=== PATIENT | male | born 1975 | race Caucasian/White ===

== ENCOUNTER 2019-05-29 09:23 | Emergency (ER) | payer OTHER ==
[2019-05-29 09:30] VITALS: BP 129/89; PULSE 86; TEMP 97.7; BMI 25.0
[2019-05-29] MEDS ORDERED: KETOROLAC TROMETHAMINE 60 MG/2 ML VIAL IM ONE (09:41)
--- NOTE | 2019-05-29 09:44 | PDOC ---
History of Present Illness - General Chief Complaint: Back Pain Stated Complaint: back pain Time Seen by Provider: 05/29/19 09:28 History Source: Patient - History of Present Illness Occurred: reports: yesterday Severity: reports: moderate Pain Location: reports: back Past History - Past Medical History Allergies/Adverse Reactions: Allergies Allergy/AdvReac Type Severity Reaction Status Date / Time No Known Allergies Allergy Verified 12/22/15 10:53 Home Medications: Ambulatory Orders Ibuprofen [Motrin -] 800 mg PO Q6H #20 tablet 12/22/15 Cyclobenzaprine HCl [Flexeril -] 10 mg PO TID #9 tablet 05/29/19 Cyclobenzaprine HCl [Flexeril 10 mg] 10 mg PO HS #9 tablet 05/29/19 Ibuprofen [Motrin -] 800 mg PO Q6H #30 tablet 05/29/19 Ibuprofen [Motrin -] 800 mg PO Q6H #30 tablet 05/29/19 COPD: No - Immunization History Immunization Up to Date: Yes - Psycho Social/Smoking Cessation Hx Smoking History: Never smoked Have you smoked in the past 12 months: No Information on smoking cessation initiated: No Hx Alcohol Use: No Drug/Substance Use Hx: No Substance Use Type: None Review of Systems - Review of Systems Constitutional: No: Chills, Fever ABD/GI: No: Nausea, Vomiting, Abdominal cramping : No: Dysuria, Flank Pain, Hematuria Neurological: No: Numbness, Tingling, Weakness *Physical Exam - Vital Signs Last Vital Signs Temp Pulse Resp BP Pulse Ox 97.7 F 86 19 129/89 99 05/29/19 09:28 05/29/19 09:28 05/29/19 09:28 05/29/19 09:28 05/29/19 09:28 - Physical Exam General Appearance: Yes: Appropriately Dressed, Mild Distress HEENT: positive: Normal Voice Neck: positive: Supple Respiratory/Chest: negative: Respiratory Distress Gastrointestinal/Abdominal: positive: Soft. negative: Tender Musculoskeletal: positive: Other (c/o mid lower bakc pain w/ forward bending). negative: CVA Tenderness, Vertebral Tenderness Integumentary: positive: Dry, Warm Neurologic: positive: Fully Oriented, Alert, Normal Mood/Affect, Motor Strength 5/5 Medical Decision Making - Medical Decision Making 05/29/19 09:42 43-year-old male endorses history of chronic intermittent mid lower back pain, here with usual pain since yesterday. No radiation of pain. No acute sensory changes incontinence or lower extremity weakness. No recent trauma or other obvious inciting factors. No acute symptoms, nausea, vomiting, fever or chills. Has not taken anything for pain. see exam Lower back pain Recurrent No red flags at this time Dc w/ pain control PMD f/u as needed Discharge - Discharge Information Problems reviewed: Yes Clinical Impression/Diagnosis: Back pain Qualifiers: Back pain location: low back pain Chronicity: acute Back pain laterality: midline Sciatica presence: without sciatica Qualified Code(s): M54.5 - Low back pain Condition: Good Disposition: HOME - Additional Discharge Information Prescriptions: Cyclobenzaprine HCl [Flexeril 10 mg] 10 mg PO HS #9 tablet Cyclobenzaprine HCl [Flexeril -] 10 mg PO TID #9 tablet Ibuprofen [Motrin -] 800 mg PO Q6H #30 tablet Ibuprofen [Motrin -] 800 mg PO Q6H #30 tablet - Follow up/Referral - Patient Discharge Instructions Patient Printed Discharge Instructions: DI for Low Back Pain Additional Instructions: Take medication as directed for pain and if pain persists please follow-up with your PMD - Post Discharge Activity
[2019-05-29] MEDS ORDERED: KETOROLAC TROMETHAMINE 60 MG/2 ML VIAL ONE (09:48)
== END 2019-05-29 10:00 | disposition home or self-care (01) ==
LOC: JERFT 09:23
PROC: 3E0233Z Introduction of Anti-inflammatory into Muscle, Percutaneous Approach (ICD-10-PCS; principal; 2019-05-29)
DX: M54.5 Low back pain (principal)
CPT/HCPCS: 96372; 99282-25

== ENCOUNTER 2019-06-26 12:26 | Emergency (ER) | payer OTHER ==
[2019-06-26 12:39] VITALS: BP 126/85; PULSE 105; TEMP 97.8; BMI 22.9
--- NOTE | 2019-06-26 13:19 | PDOC ---
History of Present Illness - General Chief Complaint: Cold Symptoms Stated Complaint: COLD SYMPTOMS Time Seen by Provider: 06/26/19 12:41 History Source: Patient Exam Limitations: Clinical Condition - History of Present Illness Initial Comments: 06/26/19 13:14 Patient with no significant past medical history present with spouse with complaint of 3-day history of dry cough, nasal congestion, body aches, fever, chills, throat discomfort and intermittent headaches. Patient reported last fever yesterday of 101 F with no fever today. Patient did not take anything for symptoms. Denies chest pain, shortness of breath, palpitation, nausea, vomiting, diarrhea or constipation. Denies any other symptoms. And spouse present with patient with same symptoms Is this a multiple visit Asthma Patient?: No Timing/Duration: reports: other (3 days) Severity: reports: mild Associated Symptoms: reports: cough, fever/chills, headache, muscle aches, nasal congestion, nasal drainage, sore throat. denies: chest pain/soreness, dizziness, lightheadedness, shortness of breath, wheezing Past History - Past Medical History Allergies/Adverse Reactions: Allergies Allergy/AdvReac Type Severity Reaction Status Date / Time No Known Allergies Allergy Verified 06/26/19 12:53 Home Medications: Ambulatory Orders Ibuprofen [Motrin -] 800 mg PO Q6H #20 tablet 12/22/15 Cyclobenzaprine HCl [Flexeril -] 10 mg PO TID #9 tablet 05/29/19 Cyclobenzaprine HCl [Flexeril 10 mg] 10 mg PO HS #9 tablet 05/29/19 Ibuprofen [Motrin -] 800 mg PO Q6H #30 tablet 05/29/19 Ibuprofen [Motrin -] 800 mg PO Q6H #30 tablet 05/29/19 Benzonatate [Tessalon Pearls -] 100 mg PO Q8H PRN #20 capsule 06/26/19 Ipratropium Saline 2 spray NS BID PRN 5 Days #1 spray 06/26/19 Montelukast Na [Singulair -] 10 mg PO DAILY #7 tablet 06/26/19 COPD: No - Immunization History Immunization Up to Date: Yes - Psycho Social/Smoking Cessation Hx Smoking History: Never smoked Have you smoked in the past 12 months: No Hx Alcohol Use: No Drug/Substance Use Hx: No Substance Use Type: None Review of Systems - Review of Systems Able to Perform ROS?: Yes Is the patient limited [place] proficient: No Constitutional: Yes: Chills, Fever, Malaise HEENTM: Yes: Symptoms Reported, See HPI, Nose Congestion, Throat Pain. No: Eye Pain, Blurred Vision, Tearing, Recent change in vision, Double Vision, Cataracts , Ear Pain, Ocular Prothesis, Ear Discharge, Nose Pain, Tinnitus, Nose Bleeding , Hearing Loss, Throat Swelling, Mouth Pain, Dental Problems, Difficulty Swallowing, Mouth Swelling, Other Respiratory: Yes: Symptoms reported, See HPI, Cough. No: Orthopnea, Shortness of Breath, SOB with Exertion, SOB at Rest, Stridor, Wheezing, Productive cough, Hemoptysis, Other Cardiac (ROS): No: Symptoms Reported, See HPI, Chest Pain, Edema, Irregular Heart Rate, Lightheadedness, Palpitations, Syncope, Chest Tightness, Other ABD/GI: No: Symptoms Reported, Nausea, Vomiting Musculoskeletal: No: Symptoms Reported Integumentary: No: Symptoms Reported, Rash Neurological: Yes: Symptoms reported, See HPI, Headache (intermittent). No: Numbness, Paresthesia, Tingling, Dizziness All Other Systems: Reviewed and Negative *Physical Exam - Vital Signs Last Vital Signs Temp Pulse Resp BP Pulse Ox 97.8 F 105 H 18 126/85 98 06/26/19 12:33 06/26/19 12:33 06/26/19 12:33 06/26/19 12:33 06/26/19 12:33 - Physical Exam 06/26/19 13:17 GENERAL: Well developed, well nourished. Awake and alert. No acute distress. HEENT: Normocephalic, atraumatic. PERRLA, EOMI. No conjunctival pallor. Sclera are non-icteric. Moist mucous membranes. Oropharynx is clear. NECK: Supple. Full ROM. CARDIOVASCULAR: Regular rate and rhythm. No murmurs, rubs, or gallops. Distal pulses are 2+ and symmetric. PULMONARY: No evidence of respiratory distress. Lungs clear to auscultation bilaterally. No wheezing, rales or rhonchi. ABDOMINAL: Soft. Non-tender. Non-distended. No rebound or guarding. No organomegaly. Normoactive bowel sounds. MUSCULOSKELETAL Normal range of motion at all joints. SKIN: Warm and dry. Normal capillary refill. No rashes. No jaundice. NEUROLOGICAL: Alert, awake, appropriate. Gait is normal without ataxia. PSYCHIATRIC: Cooperative. Good eye contact. Appropriate mood General Appearance: Yes: Nourished, Appropriately Dressed. No: Apparent Distress Medical Decision Making - Medical Decision Making 06/26/19 13:16 Patient with no significant past medical history present with spouse with complaint of 3-day history of dry cough, nasal congestion, body aches, fever, chills, throat discomfort and intermittent headaches. Patient reported last fever yesterday of 101 F with no fever today. Patient did not take anything for symptoms. Denies chest pain, shortness of breath, palpitation, nausea, vomiting, diarrhea or constipation. Denies any other symptoms. And spouse present with patient with same symptoms Exam significant for bilateral nasal congestion otherwise unremarkable exam. Lungs clear to auscultation bilateral. Patient afebrile. No pharyngeal erythema and normal cardio exam. Symptoms likely viral syndrome URI. Patient stable for outpatient management on Tessalon Perles as needed for cough, Atrovent nasal spray for nasal congestion and Singulair antihistamine for congestion with advised to increase fluid intake and follow-up with PCP Discharge - Discharge Information Problems reviewed: Yes Clinical Impression/Diagnosis: Viral syndrome, URI, acute Condition: Stable Disposition: HOME - Admission No - Additional Discharge Information Prescriptions: Benzonatate [Tessalon Pearls -] 100 mg PO Q8H PRN #20 capsule PRN Reason: Cough Ipratropium Saline 2 spray NS BID PRN 5 Days #1 spray PRN Reason: nasal congestion Montelukast Na [Singulair -] 10 mg PO DAILY #7 tablet - Follow up/Referral - Patient Discharge Instructions Patient Printed Discharge Instructions: DI for Viral Upper Respiratory Infection -- Adult Additional Instructions: Your symptoms likely caused by viral infection. Take prescribed medication as prescribed for cough and congestion. Increase fluid intake. Alternate between Tylenol and Motrin as needed for fever. Follow-up with primary care as needed - Post Discharge Activity
== END 2019-06-26 13:29 | disposition home or self-care (01) ==
LOC: JERFT 12:26 → JER 12:26 → JERFT 13:29
DX: J06.9 Acute upper respiratory infection, unspecified (principal); B97.89 Other viral agents as the cause of diseases classified elsewhere; R05 Cough
CPT/HCPCS: 99281-25

== ENCOUNTER 2019-07-05 09:36 | Emergency (ER) | payer OTHER ==
[2019-07-05 09:53] VITALS: BP 122/79; PULSE 89; TEMP 97.9; BMI 23.9
--- NOTE | 2019-07-05 10:49 | PDOC ---
History of Present Illness - General Chief Complaint: Cold Symptoms Stated Complaint: SORE THROAT History Source: Patient Exam Limitations: No Limitations - History of Present Illness Initial Comments: 07/05/19 10:44 Patient is a 43-year-old male with no past medical history here with complaints of sore throat, fatigue, cough, fever, generalized body ache x3 days. Patient states pain on swallowing 10 out of 10. Has been taking Robitussin for his cough which is productive of yellow sputum. Patient has other family members here with the same symptoms. States that the sister was diagnosed with the flu. PMHX: neg PSOCHX: neg etoh, drug, cig ALL: NKDA GENERAL/CONSTITUTIONAL: [(+) fever or chills. (+) weakness. No weight change.] HEAD, EYES, EARS, NOSE AND THROAT: [No change in vision. No ear pain or discharge. (+) sore throat.] CARDIOVASCULAR: [No chest pain or shortness of breath.] RESPIRATORY: [(+) cough, wheezing, or hemoptysis.] GASTROINTESTINAL: [No nausea, vomiting, diarrhea or constipation. No rectal bleeding.] GENITOURINARY: [No dysuria, frequency, or change in urination.] MUSCULOSKELETAL: [(+) joint or muscle swelling or pain. No neck or back pain.] SKIN AND BREASTS: [No rash or easy bruising.] NEUROLOGIC: [(+) headache, vertigo, loss of consciousness, or loss of sensation. ] PSYCHIATRIC: [No depression or anxiety.] ENDOCRINE: [No increased thirst. No abnormal weight change.] HEMATOLOGIC/LYMPHATIC: [No anemia, easy bleeding, or history of blood clots.] ALLERGIC/IMMUNOLOGIC: [No hives or skin allergy. No latex allergy.] GENERAL: [The patient is awake, alert, and fully oriented, in no acute distress. ] HEAD: [Normal with no signs of trauma.] EYES: [Pupils equal, round and reactive to light, extraocular movements intact, sclera anicteric, conjunctiva clear.] ENT: [Ears normal, nares patent, oropharynx clear without exudates. Moist mucous membranes.] NECK: [Normal range of motion, supple without lymphadenopathy, JVD, or masses.] LUNGS: [Breath sounds equal, clear to auscultation bilaterally. No wheezes, and no crackles.] HEART: [Regular rate and rhythm, normal S1 and S2 without murmur, rub.] ABDOMEN: [Soft, nontender, normoactive bowel sounds. No guarding, no rebound. No masses.] EXTREMITIES: [Normal range of motion, no edema. No clubbing or cyanosis. No cords, erythema, or tenderness.] NEUROLOGICAL: [Cranial nerves II through XII grossly intact. Normal speech, normal gait.] PSYCH: [Normal mood, normal affect.] SKIN: [Warm, Dry, normal turgor, no rashes or lesions noted.] Past History - Past Medical History Allergies/Adverse Reactions: Allergies Allergy/AdvReac Type Severity Reaction Status Date / Time No Known Allergies Allergy Verified 06/26/19 12:53 Home Medications: Ambulatory Orders Ibuprofen [Motrin -] 800 mg PO Q6H #20 tablet 12/22/15 Cyclobenzaprine HCl [Flexeril -] 10 mg PO TID #9 tablet 05/29/19 Cyclobenzaprine HCl [Flexeril 10 mg] 10 mg PO HS #9 tablet 05/29/19 Ibuprofen [Motrin -] 800 mg PO Q6H #30 tablet 05/29/19 Ibuprofen [Motrin -] 800 mg PO Q6H #30 tablet 05/29/19 Benzonatate [Tessalon Pearls -] 100 mg PO Q8H PRN #20 capsule 06/26/19 Ipratropium [place] 2 spray NS BID PRN 5 Days #1 spray 06/26/19 Montelukast Na [Singulair -] 10 mg PO DAILY #7 tablet 06/26/19 COPD: No - Immunization History Immunization Up to Date: Yes - Psycho Social/Smoking Cessation Hx Smoking History: Never smoked Have you smoked in the past 12 months: No Information on smoking cessation initiated: No Hx Alcohol Use: No Drug/Substance Use Hx: No Substance Use Type: None *Physical Exam - Vital Signs Last Vital Signs Temp Pulse Resp BP Pulse Ox 97.9 F 89 18 122/79 98 07/05/19 09:51 07/05/19 09:51 07/05/19 09:51 07/05/19 09:51 07/05/19 09:51 Medical Decision Making - Medical Decision Making 07/05/19 10:44 Patient is a 43-year-old male with no past medical history here with complaints of sore throat, fatigue, cough, fever, generalized body ache x3 days. Patient states pain on swallowing 10 out of 10. Has been taking Robitussin for his cough which is productive of yellow sputum. Patient has other family members here with the same symptoms. States that the sister was diagnosed with the flu. Patient with flulike symptoms Offered Motrin but patient has his own and will take at home. I discussed the physical exam findings, ancillary test results and final diagnoses with the patient. I answered all of the patient's questions. The patient was satisfied with the care received and felt comfortable with the discharge plan and treatment plan. The Patient agrees to follow up with the primary care physician within 24-72 hours. Discharge - Discharge Information Problems reviewed: Yes Clinical Impression/Diagnosis: Influenza, Viral syndrome Condition: Stable Disposition: HOME - Follow up/Referral - Patient Discharge Instructions Patient Printed Discharge Instructions: DI for Viral Upper Respiratory Infection -- Adult, DI for Influenza -- Adult Additional Instructions: Your Discharge Instructions: You must call primary care physician within 24 hours to arrange follow-up. Return to the Emergency Department with any new, persistent or worsening symptoms, for fever, chills, SOB, dizziness or any other concerning changes that may occur. - Post Discharge Activity
== END 2019-07-05 11:09 | disposition home or self-care (01) ==
LOC: JERFT 09:36
DX: J11.1 Influenza due to unidentified influenza virus with other respiratory manifestations (principal); B34.9 Viral infection, unspecified
CPT/HCPCS: 99281-25

== ENCOUNTER 2020-06-10 16:36 | Emergency (ER) | payer OTHER ==
[2020-06-10 16:49] VITALS: BMI 20.3
[2020-06-10] MEDS ORDERED: FAMOTIDINE 20 MG/50 ML IVPB 20 MG/50 ML MG IVPB ONE ×2 (17:25→17:31)
[2020-06-10] MEDS ORDERED: SODIUM CHLORIDE 0.9% 500 ML INFUS.BAG IV ONE (17:25)
[2020-06-10] MEDS ORDERED: ONDANSETRON 4 MG/2 ML VIAL IVPUSH ONE (17:25)
[2020-06-10] MEDS ORDERED: MAG HYDROX/AL HYDROX/SIMETH 30 ML UNIT-DOSE CUP PO ONE (17:26)
[2020-06-10] MEDS ORDERED: ONDANSETRON 4 MG/2 ML VIAL ONE (17:31)
[2020-06-10] MEDS ORDERED: MAG HYDROX/AL HYDROX/SIMETH 30 ML UNIT-DOSE CUP ONE (17:31)
[2020-06-10 17:59] LABS: BASO % 0.2 % (0-2.0); EOS % 0.1 % (0-4.5); HEMATOCRIT 49.7 % (35.4-49); HEMOGLOBIN 16.4 GM/dL (11.7-16.9); LYMPH % 6.4 % (8-40); MCH 29.3 pg (25.7-33.7); MEAN CELL VOLUME 88.9 fl (80-96); MONO % 2.1 % (3.8-10.2); NEUT % 91.2 % (42.8-82.8); PLATELET COUNT 326 K/MM3 (134-434); RBC 5.59 M/mm3 (4.00-5.60); RDW 14.4 % (11.9-15.9); WHITE BLOOD COUNT 10.6 K/mm3 (4.0-10.0)
[2020-06-10] MEDS ORDERED: CEFTRIAXONE 1 GM/50 ML BAG ONE (18:16)
[2020-06-10 18:19] LABS: BLOOD UREA NITROGEN 16.6 mg/dL (7-18)
[2020-06-10 18:20] LABS: ALBUMIN 5.1 g/dl (3.4-5.0)
[2020-06-10 18:22] LABS: CREATININE 1.8 mg/dL (0.55-1.3)
[2020-06-10 18:24] LABS: BILIRUBIN,TOTAL 0.8 mg/dL (0.2-1); TOT PROT 9.9 g/dl (6.4-8.2)
[2020-06-10 18:30] LABS: EPI CELLS 9 /uL (0-25.1); HYALINE CASTS 15 /uL (0-3.1); URINE APPEARANCE CLOUDY; URINE BACTERIA 170 /uL (0-1359); URINE BILIRUBIN NEGATIVE (NEGATIVE); URINE COLOR DK YELLOW; URINE GLUCOSE (UA) NEGATIVE (NEGATIVE); URINE KETONE TRACE (NEGATIVE); URINE LEUK ESTERASE 1+ (NEGATIVE); URINE NITRITE NEGATIVE (NEGATIVE); URINE PROTEIN 1+ (NEGATIVE); URINE RBC 8 /uL (0-23.9); URINE UROBILINOGEN 0.2 mg/dL (0.2-1.0); URINE WBC 148 /uL (0-25.8)
[2020-06-10 18:31] VITALS: BP 124/82; PULSE 94; TEMP 97.6
[2020-06-10 19:07] LABS: ANISOCYTOSIS 1+; MACROCYTOSIS 0; OVALOCYTE 1+; PLATELET ESTIMATE NORMAL
== END 2020-06-10 19:25 | disposition home or self-care (01) ==
LOC: JER 16:36
PROC: 3E033NZ Introduction of Analgesics, Hypnotics, Sedatives into Peripheral Vein, Percutaneous Approach (ICD-10-PCS; principal; 2020-06-10)
PROC: 3E033GC Introduction of Other Therapeutic Substance into Peripheral Vein, Percutaneous Approach (ICD-10-PCS; 2020-06-10)
DX: N39.0 Urinary tract infection, site not specified (principal); R11.2 Nausea with vomiting, unspecified
CPT/HCPCS: 36415; 71046-TC-FY; 80053; 81003; 83690; 85025; 87086; 87186; 93005; 93010; 99285-25